=== PATIENT | male | born 1940 | race Caucasian/White ===

== ENCOUNTER 2024-08-11 14:58 | Outpatient (CLI) | payer OTHER ==
[2024-08-11 15:51] LABS: #Basophils 0.06 10x3/uL (0.0-0.2); %Basophils 0.7 % (0.0-1.0); %Eosinophils 3.5 % (0.0-10.0); %Lymphocytes 32.1 % (21.0-51.0); %Neutrophils 51.9 % (42.0-75.0); Hematocrit 46.2 % (42.0-52.0); Hemoglobin 15.5 g/dL (14.0-18.0); Mean Corpuscular HGB CONC 33.5 g/dL (32.0-36.0); Mean Corpuscular Hemoglobin 30.8 pg (27.0-31.0); Mean Corpuscular Volume 91.8 fL (78.0-98.0); Mean Platelet Volume 10.4 fL (7.4-10.4); Platelet Count 247 10x3/uL (130-400); RBC Distribution Width 12.1 % (11.5-14.5); Red Blood Cell (RBC) Count 5.03 mill/uL (4.70-6.10)
[2024-08-11 16:06] LABS: Anion Gap 9 mmol/L (10-20); BUN (Urea Nitrogen) 23 mg/dL (8.4-25.7); Calc. Creatinine Clearance 0 mL/min (70-130); Calcium 9.1 mg/dL (7.8-10.44); Carbon Dioxide 27 mmol/L (23-31); Chloride 107 mmol/L (98-107); Estimated GFR 86; Glucose 115 mg/dL (83-110); Potassium 4.1 mmol/L (3.5-5.1); Sodium 139 mmol/L (136-145)
== END 2024-08-11 14:59 | disposition home or self-care (01) ==
LOC: LABBT 14:58
PROVIDERS: ATTEND Internal Medicine Cardiovascular Disease
DX: Z01.812 Encounter for preprocedural laboratory examination (principal); I35.0 Nonrheumatic aortic (valve) stenosis
CPT/HCPCS: 80048; 85025

== ENCOUNTER 2024-08-18 05:44 | Inpatient (IN) | payer OTHER ==
[2024-08-18] MEDS ORDERED: Verapamil 5 MG/2 ML VIAL ONE (06:08)
[2024-08-18] MEDS ORDERED: Heparin 10,000 UNITS/ 10 ML VIAL ONE (06:08)
[2024-08-18] MEDS ORDERED: Adenosine 6 mg (2 mL) VIAL ONE (06:08)
[2024-08-18] MEDS ORDERED: Nitroglycerin 50 MG/250 ML BOT 250 ML ONE (06:09)
[2024-08-18] MEDS ORDERED: fentaNYL 50 mcg/mL 1 mL Vial ONE ×2 (06:45→07:56)
[2024-08-18] MEDS ORDERED: Midazolam HCl 2 mg/2 ml Vial ONE (06:45)
[2024-08-18] MEDS ORDERED: Acetaminophen/Codeine 30-300mg Tablet PO PRN (09:30)
[2024-08-18] MEDS ORDERED: HOLD HYPOGLYCEMIC MEDS AM OF CATH FS SCH (09:30)
[2024-08-18] MEDS ORDERED: Diazepam 5 MG TAB PO SCH (09:30)
[2024-08-18] MEDS ORDERED: Nitroglycerin 0.4 MG TAB (25 Tab Bottle) SL PRN (09:30)
[2024-08-18] MEDS ORDERED: Sodium Chloride 0.9% 1,000 ML IV SCH ×2 (09:30)
[2024-08-18] MEDS ORDERED: Sodium Chloride 0.9% 250 ML BAG (BAXTER) IVPB PRN (09:30)
[2024-08-18] MEDS: Sodium Chloride 0.9% 1,000 ML IV SCH (10:00)
[2024-08-18] MEDS ORDERED: Iopamidol 370 76% 100 ML VIAL ONE (11:02)
[2024-08-18] MEDS ORDERED: Acetaminophen 325 MG TAB PO PRN (13:04)
[2024-08-18] MEDS ORDERED: Ondansetron PF 4 MG/2 ML Vial IVP PRN (13:04)
[2024-08-18] MEDS ORDERED: Dextrose 5% in Water 1,000 ML IV PRN (13:38)
[2024-08-18] MEDS ORDERED: Insulin Lispro 100 UNIT/ML 10 ML VIAL SC PRN (13:38)
[2024-08-18] MEDS ORDERED: Glucagon 1 MG/ML KIT IM PRN (13:38)
[2024-08-18] MEDS ORDERED: Dextrose 50% Abboject 50 ML SYRINGE SLOW IVP PRN (13:38)
[2024-08-18 18:17] VITALS: BMI 27.5
[2024-08-18] MEDS: Aspirin 81 mg Enteric Coated Tablet PO SCH (21:56)
[2024-08-18] MEDS: Atorvastatin Calcium 20 MG TAB PO SCH (21:57)
[2024-08-18] MEDS: Lisinopril 20 MG TAB PO SCH (21:57)
[2024-08-18] MEDS ORDERED: DC ENOXAPARIN NIGHT BEFORE CATH FS SCH (22:00)
[2024-08-18] MEDS: Acetaminophen/Codeine 30-300mg Tablet PO PRN (22:00)
[2024-08-19 01:51] LABS: #Basophils 0.03 10x3/uL (0.0-0.2); %Basophils 0.4 % (0.0-1.0); %Eosinophils 4.4 % (0.0-10.0); %Lymphocytes 28.4 % (21.0-51.0); %Monocytes 11.6 % (0.0-10.0); %Neutrophils 54.8 % (42.0-75.0); Hematocrit 39.9 % (42.0-52.0); Hemoglobin 13.6 g/dL (14.0-18.0); Mean Corpuscular HGB CONC 34.1 g/dL (32.0-36.0); Mean Corpuscular Hemoglobin 30.7 pg (27.0-31.0); Mean Corpuscular Volume 90.1 fL (78.0-98.0); Mean Platelet Volume 9.8 fL (7.4-10.4); Platelet Count 207 10x3/uL (130-400); RBC Distribution Width 11.9 % (11.5-14.5); Red Blood Cell (RBC) Count 4.43 mill/uL (4.70-6.10)
[2024-08-19 02:11] LABS: Troponin I 0.012 ng/mL (< 0.028)
[2024-08-19 02:25] LABS: Anion Gap 14 mmol/L (10-20); BUN (Urea Nitrogen) 14 mg/dL (8.4-25.7); Calc. Creatinine Clearance 76 mL/min (70-130); Calcium 8.7 mg/dL (7.8-10.44); Carbon Dioxide 21 mmol/L (23-31); Chloride 108 mmol/L (98-107); Cholesterol 198 mg/dl (< 200 Desired); Estimated GFR 85; Glucose 126 mg/dL (83-110); HDL Cholesterol 33 mg/dL (>60 Neg Risk); LDL Cholesterol, Calculated 88 mg/dL; Magnesium 2.1 mg/dL (1.6-2.6); Potassium 3.9 mmol/L (3.5-5.1); Sodium 139 mmol/L (136-145); Triglycerides 383 mg/dL (Less than 150)
[2024-08-19] MEDS ORDERED: Dexamethasone 4 mg/ml Vial ONE (07:11)
[2024-08-19] MEDS ORDERED: Bupivacaine PF 0.5% 30 ML VIAL ONE (07:11)
[2024-08-19] MEDS ORDERED: PHENYLEPHRINE-NS 100 MCG/ML 10 ML SYRINGE ONE (07:11)
[2024-08-19] MEDS ORDERED: EPINEPHrine 1 MG/ML VIAL ONE (07:11)
[2024-08-19] MEDS ORDERED: Albumin 5% 500 ML ONE (07:12)
[2024-08-19] MEDS ORDERED: Heparin 10,000 UNITS/1 ML VIAL 30,000 UNITS in Sodium Chloride 0.9% 1,000 ML FS SCH (07:15)
[2024-08-19] MEDS ORDERED: Vancomycin (BATCH) 1.5 GM in Premix 1 BAG IVPB SCH (08:00)
[2024-08-19] MEDS ORDERED: CEFAZOLIN 2 GM in Sodium Chloride 0.9% 100 ML IVPB SCH (08:00)
[2024-08-19] MEDS: Amlodipine 5 MG TAB PO SCH (08:05)
[2024-08-19] MEDS ORDERED: CEFAZOLIN 2 GM VIAL ONE (08:27)
[2024-08-19] MEDS ORDERED: Vancomycin (BATCH) 1.5 GM/300 ML BAG ONE (08:27)
[2024-08-19] MEDS ORDERED: Lidocaine 1% MPF 2 ML VIAL ONE (08:35)
[2024-08-19] MEDS ORDERED: Enoxaparin 40 MG (0.4 mL) SYRINGE SC SCH (09:00)
[2024-08-19] MEDS ORDERED: Fentanyl 250 MCG/5 ML VIAL ONE ×2 (09:08→10:35)
[2024-08-19] MEDS ORDERED: Midazolam HCl 2 mg/2 ml Vial ONE (09:08)
[2024-08-19] MEDS ORDERED: Etomidate 40 MG (20 mL) VIAL ONE (09:27)
[2024-08-19] MEDS ORDERED: PROPOFOL 20 ML ONE (09:30)
[2024-08-19] MEDS ORDERED: Vecuronium 10 MG VIAL ONE (10:46)
[2024-08-19] MEDS ORDERED: Heparin 10,000 UNITS/ 10 ML VIAL ONE (11:35)
[2024-08-19] MEDS ORDERED: Insulin Regular, Human 100 UNIT/ML 10 ML VIAL ONE (11:38)
[2024-08-19] MEDS ORDERED: Rocuronium Bromide 10 MG/ML (10ML VIAL) ONE (12:57)
[2024-08-19] MEDS ORDERED: Protamine Sulfate 50 MG/5 ML VIAL ONE (13:09)
[2024-08-19] MEDS ORDERED: Hetastarch 6% 500 ML 500 ML IVPB PRN (13:45)
[2024-08-19] MEDS ORDERED: Albumin 5% 12.5 GM (250 mL) BOT IVPB PRN ×2 (13:45)
[2024-08-19] MEDS ORDERED: Mag-Al 1200 mg/1200 mg/30 ML UDCUP PO PRN (13:45)
[2024-08-19] MEDS ORDERED: Bisacodyl 10 MG SUPP PR PRN (13:45)
[2024-08-19] MEDS ORDERED: Ipratropium/Albuterol 3 ML NEB NEB PRN (13:45)
[2024-08-19] MEDS ORDERED: NOREPINEPHRINE 8 MG/250 ML-D5W 250 ML IVPB PRN (13:45)
[2024-08-19] MEDS ORDERED: Bisacodyl 5 MG TAB PO PRN (13:45)
[2024-08-19] MEDS ORDERED: HYDROmorphone 2 MG/ML VIAL ONE (13:54)
[2024-08-19 14:24] LABS: Actual Bicarbonate (HCO3a) 21.6 mEq/L (22-28); Base Excess (BEa) -4.2 mEq/L (-2.0 to +3.0); CO2 Tension 42.2 mmHg (35.0-45.0); Calcium, Ionized (arterial) 1.13 mmol/L (1.12-1.30); Carboxyhemoglobin (COHb) 0.8 gm% (0.0-3.0); Hematocrit-ABG 38 % (42.0-52.0); O2 Tension (PaO2), arterial 137.8 mmHg (> 60.0); Potassium - ABG Lab 3.82 mmol/L (3.70-5.30); pH, Arterial 7.326 (7.35-7.45)
[2024-08-19 14:28] LABS: Puncture Site Arterial Line
[2024-08-19] MEDS ORDERED: Dextrose 5% in Water 1,000 ML IV PRN (14:30)
[2024-08-19] MEDS ORDERED: Glucagon 1 MG/ML KIT SC PRN (14:30)
[2024-08-19] MEDS ORDERED: Dextrose 50% Abboject 50 ML SYRINGE SLOW IVP PRN (14:30)
[2024-08-19 14:35] LABS: #Basophils 0.04 10x3/uL (0.0-0.2); %Basophils 0.2 % (0.0-1.0); %Eosinophils 0.9 % (0.0-10.0); %Lymphocytes 15.7 % (21.0-51.0); %Monocytes 5.3 % (0.0-10.0); %Neutrophils 76.1 % (42.0-75.0); Hematocrit 36.1 % (42.0-52.0); Hemoglobin 12.3 g/dL (14.0-18.0); Mean Corpuscular HGB CONC 34.1 g/dL (32.0-36.0); Mean Corpuscular Hemoglobin 30.4 pg (27.0-31.0); Mean Corpuscular Volume 89.4 fL (78.0-98.0); Mean Platelet Volume 9.5 fL (7.4-10.4); Platelet Count 141 10x3/uL (130-400); Red Blood Cell (RBC) Count 4.04 mill/uL (4.70-6.10)
[2024-08-19] MEDS ORDERED: Nitroglycerin 0.4 MG TAB (25 Tab Bottle) SL PRN (14:39)
[2024-08-19] MEDS ORDERED: Acetaminophen/Codeine 30-300mg Tablet PO PRN ×2 (14:40)
[2024-08-19] MEDS: D5 1/2 NS w/20 mEq KCL 1,000 ML IV SCH (14:41)
[2024-08-19] MEDS: Insulin Regular, Human 100 UNIT/ML 10 ML VIAL SC PRN (14:42)
[2024-08-19 14:44] LABS: INR-International Normal Ratio 1.4; PTT 33.6 sec (22.9-36.1); Prothrombin Time 17.3 sec (12.0-14.7)
[2024-08-19] MEDS: Morphine 2 MG/ML VIAL SLOW IVP PRN (14:44)
[2024-08-19] MEDS: Post-Op Insulin Drip Protocol IVPB ONE (14:45)
[2024-08-19 14:49] LABS: Anion Gap 12 mmol/L (10-20); BUN (Urea Nitrogen) 12 mg/dL (8.4-25.7); Calc. Creatinine Clearance 82 mL/min (70-130); Calcium 7.5 mg/dL (7.8-10.44); Carbon Dioxide 21 mmol/L (23-31); Chloride 115 mmol/L (98-107); Estimated GFR 87; Glucose 151 mg/dL (83-110); Potassium 3.9 mmol/L (3.5-5.1); Sodium 144 mmol/L (136-145)
[2024-08-19] MEDS: Magnesium 2 GM/50 ML(in water) 2 GM in Premix 1 BAG IVPB SCH (14:50)
[2024-08-19] MEDS: Nitroglycerin 50 MG/250 ML BOT 250 ML IVPB PRN (14:51)
[2024-08-19] MEDS: CEFAZOLIN 2 GM in Sodium Chloride 0.9% 100 ML IVPB SCH (16:28)
[2024-08-19] MEDS: Potassium Chloride 20 MEQ (100 mL) BAG IVPB PRN (16:33)
[2024-08-19] MEDS: Ondansetron PF 4 MG/2 ML Vial IVP PRN (16:57)
[2024-08-19 17:45] LABS: Hematocrit 38.2 % (42.0-52.0); Hemoglobin 12.8 g/dL (14.0-18.0)
[2024-08-19 17:52] LABS: Glucose 138 mg/dL (83-110)
[2024-08-19 17:59] LABS: Hemoglobin A1c 6.2 % (4.0-6.0)
[2024-08-19 18:00] LABS: INR-International Normal Ratio 1.3; PTT 30.1 sec (22.9-36.1); Prothrombin Time 15.9 sec (12.0-14.7)
[2024-08-19 20:05] LABS: Potassium 4.4 mmol/L (3.5-5.1)
[2024-08-19] MEDS: INSULIN REGULAR IN 0.9 % NACL 100 UNITS in Premix 1 BAG IVPB SCH (20:19)
[2024-08-19] MEDS: Famotidine/PF 20 mg/2ml Vial SLOW IVP SCH (20:41)
[2024-08-19] MEDS: Atorvastatin Calcium 20 MG TAB PO SCH (20:41)
[2024-08-19] MEDS: Vancomycin (BATCH) 1.5 GM in Premix 1 BAG IVPB SCH (20:41)
[2024-08-19] MEDS ORDERED: Lisinopril 20 MG TAB PO SCH ×2 (21:00)
[2024-08-19] MEDS: fentaNYL 50 mcg/mL 1 mL Vial SLOW IVP PRN (22:45)
[2024-08-19 23:07] LABS: Actual Bicarbonate (HCO3a) 17.1 mEq/L (22-28); Base Excess (BEa) -7.4 mEq/L (-2.0 to +3.0); CO2 Tension 31.7 mmHg (35.0-45.0); Calcium, Ionized (arterial) 1.15 mmol/L (1.12-1.30); Hematocrit-ABG 38 % (42.0-52.0); pH, Arterial 7.349 (7.35-7.45)
[2024-08-19 23:08] LABS: ALV-art Gradient 151.575 mmHg (0-20); Puncture Site Arterial Line
[2024-08-20] MEDS: traMADol HCl 50 MG TAB PO PRN (04:08)
[2024-08-20 04:42] LABS: #Basophils Less than 0.03 10x3/uL (0.0-0.2); #Eosinophils Less than 0.03 10x3/uL (0.0-0.7); %Basophils 0.1 % (0.0-1.0); %Lymphocytes 5.7 % (21.0-51.0); %Monocytes 12.1 % (0.0-10.0); Hematocrit 34.6 % (42.0-52.0); Hemoglobin 11.6 g/dL (14.0-18.0); Mean Corpuscular HGB CONC 33.5 g/dL (32.0-36.0); Mean Corpuscular Hemoglobin 30.9 pg (27.0-31.0); Mean Platelet Volume 10.3 fL (7.4-10.4); Platelet Count 152 10x3/uL (130-400); RBC Distribution Width 12.6 % (11.5-14.5); Red Blood Cell (RBC) Count 3.76 mill/uL (4.70-6.10)
[2024-08-20] MEDS: fentaNYL 50 mcg/mL 1 mL Vial SLOW IVP PRN (04:45)
[2024-08-20 05:03] LABS: Anion Gap 11 mmol/L (10-20); BUN (Urea Nitrogen) 14 mg/dL (8.4-25.7); Calc. Creatinine Clearance 84 mL/min (70-130); Calcium 7.8 mg/dL (7.8-10.44); Carbon Dioxide 21 mmol/L (23-31); Chloride 113 mmol/L (98-107); Estimated GFR 88; Glucose 144 mg/dL (83-110); Potassium 4.3 mmol/L (3.5-5.1); Sodium 141 mmol/L (136-145)
[2024-08-20] MEDS ORDERED: Dextrose 5% in Water 1,000 ML IV PRN (07:51)
[2024-08-20] MEDS ORDERED: Glucagon 1 MG/ML KIT IM PRN (07:51)
[2024-08-20] MEDS ORDERED: Dextrose 50% Abboject 50 ML SYRINGE SLOW IVP PRN (07:51)
[2024-08-20] MEDS: Magnesium 2 GM/50 ML(in water) 2 GM in Premix 1 BAG IVPB SCH (08:39)
[2024-08-20] MEDS ORDERED: Amlodipine 5 MG TAB PO SCH (09:00)
[2024-08-20] MEDS: Vancomycin (BATCH) 1.5 GM in Premix 1 BAG IVPB SCH (11:49)
[2024-08-20] MEDS: Oxybutynin 5 MG TAB PO SCH ×2 (11:56→20:45)
[2024-08-20] MEDS: Memantine 10 MG TAB PO SCH (11:56)
[2024-08-20] MEDS: Spironolactone 25 MG TAB PO SCH (11:57)
[2024-08-20] MEDS: Pantoprazole DR 40 MG TAB PO SCH (11:57)
[2024-08-20] MEDS: Aspirin 325 MG TAB PO SCH (11:57)
[2024-08-20] MEDS: Insulin Lispro 100 UNIT/ML 10 ML VIAL SC PRN (12:08)
[2024-08-20] MEDS ORDERED: Insulin Glargine 30 UNITS/0.3 ML VIAL SC PRN (14:18)
[2024-08-20] MEDS: Donepezil HCl 10 MG TAB PO SCH (20:44)
[2024-08-20] MEDS: Memantine 5 MG TAB PO SCH (20:45)
[2024-08-21] MEDS: hydrALAZINE 20 MG/ML VIAL SLOW IVP PRN (03:20)
[2024-08-21 04:19] LABS: #Basophils 0.03 10x3/uL (0.0-0.2); #Eosinophils Less than 0.03 10x3/uL (0.0-0.7); %Basophils 0.2 % (0.0-1.0); %Lymphocytes 7.6 % (21.0-51.0); %Monocytes 14.5 % (0.0-10.0); %Neutrophils 76.6 % (42.0-75.0); Hematocrit 27.6 % (42.0-52.0); Hemoglobin 9.2 g/dL (14.0-18.0); Mean Corpuscular HGB CONC 33.3 g/dL (32.0-36.0); Mean Corpuscular Hemoglobin 30.8 pg (27.0-31.0); Mean Corpuscular Volume 92.3 fL (78.0-98.0); Platelet Count 125 10x3/uL (130-400); RBC Distribution Width 12.5 % (11.5-14.5); Red Blood Cell (RBC) Count 2.99 mill/uL (4.70-6.10)
[2024-08-21 04:24] LABS: Anion Gap 9 mmol/L (10-20); BUN (Urea Nitrogen) 15 mg/dL (8.4-25.7); Calc. Creatinine Clearance 91 mL/min (70-130); Carbon Dioxide 22 mmol/L (23-31); Chloride 106 mmol/L (98-107); Estimated GFR 89; Glucose 178 mg/dL (83-110); Potassium 4.3 mmol/L (3.5-5.1); Sodium 133 mmol/L (136-145)
[2024-08-21] MEDS: traMADol HCl 50 MG TAB PO PRN (05:16)
[2024-08-21] MEDS: Acetaminophen 325 MG TAB PO PRN (07:26)
[2024-08-21] MEDS: Pantoprazole DR 40 MG TAB PO SCH (07:27)
[2024-08-21] MEDS: Spironolactone 25 MG TAB PO SCH (07:27)
[2024-08-21] MEDS: Potassium Chloride 10 MEQ TAB PO SCH (07:30)
[2024-08-21] MEDS: Furosemide 40 MG TAB PO SCH (07:30)
[2024-08-21] MEDS ORDERED: FLU (Fluad Triv) TS24-25 (65UP)/MF59C/PF 45 MCG/0.5 ML Syringe IM ONE (18:45)
[2024-08-21] MEDS: Atorvastatin Calcium 40 MG TAB PO SCH (20:09)
[2024-08-21] MEDS: metFORMIN XR 500 MG ER.TAB PO SCH (20:09)
[2024-08-22 04:52] LABS: #Basophils Less than 0.03 10x3/uL (0.0-0.2); %Basophils 0.2 % (0.0-1.0); %Eosinophils 0.3 % (0.0-10.0); %Lymphocytes 12.2 % (21.0-51.0); %Monocytes 13.7 % (0.0-10.0); %Neutrophils 72.7 % (42.0-75.0); Hematocrit 26.2 % (42.0-52.0); Hemoglobin 9.1 g/dL (14.0-18.0); Mean Corpuscular HGB CONC 34.7 g/dL (32.0-36.0); Mean Corpuscular Hemoglobin 31.2 pg (27.0-31.0); Mean Corpuscular Volume 89.7 fL (78.0-98.0); Mean Platelet Volume 10.4 fL (7.4-10.4); Platelet Count 124 10x3/uL (130-400); RBC Distribution Width 12.4 % (11.5-14.5); Red Blood Cell (RBC) Count 2.92 mill/uL (4.70-6.10)
[2024-08-22 05:10] LABS: Anion Gap 10 mmol/L (10-20); BUN (Urea Nitrogen) 13 mg/dL (8.4-25.7); Calc. Creatinine Clearance 99 mL/min (70-130); Calcium 8.1 mg/dL (7.8-10.44); Carbon Dioxide 24 mmol/L (23-31); Chloride 104 mmol/L (98-107); Estimated GFR 91; Glucose 146 mg/dL (83-110); Magnesium 2.2 mg/dL (1.6-2.6); Potassium 3.8 mmol/L (3.5-5.1); Sodium 134 mmol/L (136-145)
[2024-08-22] MEDS: metFORMIN XR 500 MG ER.TAB PO SCH (09:56)
[2024-08-23 10:05] LABS: Actual Bicarbonate (HCO3a) 23.3 mEq/L (22-28); Analyzer IN Cardio OR; Base Excess (BEa) -2.7 mEq/L (-2.0 to +3.0); CO2 Tension 45.3 mmHg (35.0-45.0); Calcium, Ionized (arterial) 1.14 mmol/L (1.12-1.30); Hematocrit-ABG 42 % (42.0-52.0); Hemoglobin (Hb) 14.3 g/dL (14.0-18.0); O2 Tension (PaO2), arterial 102.1 mmHg (> 60.0); Potassium - ABG Lab 4.11 mmol/L (3.70-5.30)
[2024-08-23 10:05] LABS: Analyzer IN Cardio OR; Base Excess (BEa) -3.2 mEq/L (-2.0 to +3.0); Calcium, Ionized (arterial) 1.11 mmol/L (1.12-1.30); Hematocrit-ABG 41 % (42.0-52.0); O2 Tension (PaO2), arterial 383.4 mmHg (> 60.0); Potassium - ABG Lab 3.63 mmol/L (3.70-5.30); pH, Arterial 7.395 (7.35-7.45)
[2024-08-23 10:05] LABS: Actual Bicarbonate (HCO3a) 23.9 mEq/L (22-28); Analyzer IN Cardio OR; CO2 Tension 45.5 mmHg (35.0-45.0); Calcium, Ionized (arterial) 1.04 mmol/L (1.12-1.30); Carboxyhemoglobin (COHb) 0.5 gm% (0.0-3.0); Hematocrit-ABG 35 % (42.0-52.0); Hemoglobin (Hb) 11.8 g/dL (14.0-18.0); O2 Tension (PaO2), arterial 359.8 mmHg (> 60.0); Potassium - ABG Lab 4.95 mmol/L (3.70-5.30); pH, Arterial 7.339 (7.35-7.45)
[2024-08-23 10:05] LABS: Actual Bicarbonate (HCO3v) 25.7 mEq/L (22-28); Analyzer IN Cardio OR; Base Excess -1.3 mEq/L (-2.0 to +3.0); Calcium, Ionized (venous) 1.06 mmol/L (1.16-1.32); Chloride (VBG) 106 mmol/L (98-106); Hematocrit-VBG 34 % (42.0-52.0); Hemoglobin (Hb) 11.6 g/dL (12.6-17.4); Sodium 138 mmol/L (133-146)
[2024-08-23 10:06] LABS: Actual Bicarbonate (HCO3a) 21.9 mEq/L (22-28); Analyzer IN Cardio OR; Base Excess (BEa) -4.8 mEq/L (-2.0 to +3.0); CO2 Tension 47.2 mmHg (35.0-45.0); Calcium, Ionized (arterial) 1.09 mmol/L (1.12-1.30); Carboxyhemoglobin (COHb) 0.1 gm% (0.0-3.0); Hematocrit-ABG 34 % (42.0-52.0); Hemoglobin (Hb) 11.5 g/dL (14.0-18.0); O2 Tension (PaO2), arterial 379.7 mmHg (> 60.0); Potassium - ABG Lab 4.34 mmol/L (3.70-5.30); pH, Arterial 7.284 (7.35-7.45)
[2024-08-23 10:06] LABS: Actual Bicarbonate (HCO3a) 21.3 mEq/L (22-28); Analyzer IN Cardio OR; CO2 Tension 39.6 mmHg (35.0-45.0); Calcium, Ionized (arterial) 1.09 mmol/L (1.12-1.30); Carboxyhemoglobin (COHb) 0.3 gm% (0.0-3.0); Hematocrit-ABG 36 % (42.0-52.0); Hemoglobin (Hb) 12.2 g/dL (14.0-18.0); O2 Tension (PaO2), arterial 370.7 mmHg (> 60.0); Potassium - ABG Lab 3.71 mmol/L (3.70-5.30); pH, Arterial 7.348 (7.35-7.45)
[2024-08-23 10:06] LABS: Actual Bicarbonate (HCO3a) 23.2 mEq/L (22-28); Analyzer IN Cardio OR; Base Excess (BEa) -3.3 mEq/L (-2.0 to +3.0); CO2 Tension 47.8 mmHg (35.0-45.0); Calcium, Ionized (arterial) 1.03 mmol/L (1.12-1.30); Carboxyhemoglobin (COHb) 0.3 gm% (0.0-3.0); Hematocrit-ABG 31 % (42.0-52.0); Hemoglobin (Hb) 10.6 g/dL (14.0-18.0); O2 Tension (PaO2), arterial 423.9 mmHg (> 60.0); Potassium - ABG Lab 4.42 mmol/L (3.70-5.30); pH, Arterial 7.303 (7.35-7.45)
[2024-08-23 10:06] LABS: Puncture Site Arterial Line
[2024-08-23 10:06] LABS: Actual Bicarbonate (HCO3a) 22.2 mEq/L (22-28); Analyzer IN Cardio OR; Base Excess (BEa) -2.9 mEq/L (-2.0 to +3.0); CO2 Tension 39.8 mmHg (35.0-45.0); Calcium, Ionized (arterial) 1.09 mmol/L (1.12-1.30); Carboxyhemoglobin (COHb) 0.3 gm% (0.0-3.0); Hematocrit-ABG 30 % (42.0-52.0); Hemoglobin (Hb) 10.2 g/dL (14.0-18.0); O2 Tension (PaO2), arterial 330.6 mmHg (> 60.0); Potassium - ABG Lab 3.71 mmol/L (3.70-5.30); pH, Arterial 7.365 (7.35-7.45)
[2024-08-23 10:07] LABS: Puncture Site Arterial Line
[2024-08-23 10:07] LABS: Puncture Site Arterial Line
[2024-08-23 10:08] LABS: Puncture Site Arterial Line
[2024-08-23 10:08] LABS: Puncture Site Arterial Line
[2024-08-23 10:08] LABS: Puncture Site Arterial Line
[2024-08-23 10:09] LABS: Puncture Site Arterial Line
[2024-08-23] MEDS: Guaifenesin DM 100-10/5 ML UDCUP PO PRN (20:13)
[2024-08-24] MEDS ORDERED: Melatonin 3 MG TAB PO PRN (00:26)
[2024-08-24] MEDS: traZODone HCl 50 MG TAB PO SCH ×2 (00:29→21:21)
[2024-08-24 04:55] LABS: #Basophils 0.03 10x3/uL (0.0-0.2); %Basophils 0.4 % (0.0-1.0); %Eosinophils 4.1 % (0.0-10.0); %Lymphocytes 19.5 % (21.0-51.0); %Monocytes 14.7 % (0.0-10.0); %Neutrophils 58.4 % (42.0-75.0); Hematocrit 25.6 % (42.0-52.0); Hemoglobin 8.7 g/dL (14.0-18.0); Mean Corpuscular Hemoglobin 30.3 pg (27.0-31.0); Mean Corpuscular Volume 89.2 fL (78.0-98.0); Mean Platelet Volume 10.4 fL (7.4-10.4); Platelet Count 187 10x3/uL (130-400); RBC Distribution Width 12.3 % (11.5-14.5); Red Blood Cell (RBC) Count 2.87 mill/uL (4.70-6.10)
[2024-08-24 05:02] LABS: ALT (SGPT) 42 U/L (8-55); AST (SGOT) 34 U/L (5-34); Albumin 2.6 g/dL (3.4-4.8); Alkaline Phosphatase 51 U/L (40-110); Anion Gap 10 mmol/L (10-20); BUN (Urea Nitrogen) 11 mg/dL (8.4-25.7); Bilirubin, Total 0.7 mg/dL (0.2-1.2); Calc. Creatinine Clearance 97 mL/min (70-130); Calcium 8.5 mg/dL (7.8-10.44); Carbon Dioxide 27 mmol/L (23-31); Chloride 105 mmol/L (98-107); Estimated GFR 90; Glucose 143 mg/dL (83-110); Potassium 3.3 mmol/L (3.5-5.1); Protein, Total 5.6 g/dL (5.8-8.1); Sodium 139 mmol/L (136-145)
[2024-08-24] MEDS ORDERED: traZODone HCl 50 MG TAB PO PRN (06:52)
[2024-08-24] MEDS: Lisinopril 10 MG TAB PO SCH (10:15)
[2024-08-24] MEDS: diphenhydrAMINE 25 MG CAP PO SCH (21:32)
[2024-08-25] MEDS: diphenhydrAMINE 25 MG CAP PO PRN (12:30)
[2024-08-25 12:50] VITALS: BMI 26.9
[2024-08-26 11:41] VITALS: TEMP 97.9
[2024-08-26 13:17] VITALS: BP 128/59
== END 2024-08-26 16:20 | disposition home or self-care (01) | DRG 217 ==
LOC: CCL 05:44 → 2NO 08:12 → CCU 08-19 08:52 → 2NO 08-21 17:49
PROVIDERS: ADMIT Internal Medicine Cardiovascular Disease; ATTEND Internal Medicine
PROC: 4A023N6 Measurement of Cardiac Sampling and Pressure, Right Heart, Percutaneous Approach (ICD-10-PCS; principal; 2024-08-19)
PROC: 02RF08N Replacement of Aortic Valve with Zooplastic Tissue, using Rapid Deployment Technique, Open Approach (ICD-10-PCS; 2024-08-19)
PROC: B2111ZZ Fluoroscopy of Multiple Coronary Arteries using Low Osmolar Contrast (ICD-10-PCS; 2024-08-19)
PROC: 02100Z9 Bypass Coronary Artery, One Artery from Left Internal Mammary, Open Approach (ICD-10-PCS; 2024-08-19)
PROC: 021209W Bypass Coronary Artery, Three Arteries from Aorta with Autologous Venous Tissue, Open Approach (ICD-10-PCS; 2024-08-19)
PROC: 06BQ0ZZ Excision of Left Saphenous Vein, Open Approach (ICD-10-PCS; 2024-08-19)
PROC: 02L70CK Occlusion of Left Atrial Appendage with Extraluminal Device, Open Approach (ICD-10-PCS; 2024-08-19)
PROC: 5A1221Z Performance of Cardiac Output, Continuous (ICD-10-PCS; 2024-08-19)
PROC: 4A133R1 Monitoring of Arterial Saturation, Peripheral, Percutaneous Approach (ICD-10-PCS; 2024-08-19)
PROC: 3E033XZ Introduction of Vasopressor into Peripheral Vein, Percutaneous Approach (ICD-10-PCS; 2024-08-19)
PROC: 30233J1 Transfusion of Nonautologous Serum Albumin into Peripheral Vein, Percutaneous Approach (ICD-10-PCS; 2024-08-19)
DX: I35.0 Nonrheumatic aortic (valve) stenosis (principal); E87.20 Acidosis, unspecified; I25.10 Atherosclerotic heart disease of native coronary artery without angina pectoris; I27.20 Pulmonary hypertension, unspecified; E11.9 Type 2 diabetes mellitus without complications; I10 Essential (primary) hypertension; E78.5 Hyperlipidemia, unspecified; N40.0 Benign prostatic hyperplasia without lower urinary tract symptoms; D64.9 Anemia, unspecified; E87.6 Hypokalemia; E88.09 Other disorders of plasma-protein metabolism, not elsewhere classified; Z91.048 Other nonmedicinal substance allergy status; Z88.8 Allergy status to other drugs, medicaments and biological substances; Z90.49 Acquired absence of other specified parts of digestive tract; Z98.890 Other specified postprocedural states; Z79.899 Other long term (current) drug therapy; Z79.84 Long term (current) use of oral hypoglycemic drugs; Z79.4 Long term (current) use of insulin; Z79.82 Long term (current) use of aspirin
CPT/HCPCS: 36140; 36415; 36416; 36430; 71045; 80048; 80053; 80061; 82805; 83036; 83735; 84484; 85025; 85610; 85730; 86850; 86900; 86901; 88184; 88185; 88307; 93005; 93010; 93456; 93798; 94002; 97139; 99152; 99153; A4311; A4648; C1713; C1751; C1769; C1776; C1894; J0153; J0171; J0360; J0665; J1100; J1642; J1644; J1815; J2250; J2272; J2405; J2704; J2720; J3010; J3370; J3475; J3480; J3490; P9045; Q9967